=== PATIENT | female | born 1940 | race Caucasian/White ===

== ENCOUNTER 2022-02-28 22:13 | Emergency (ER) | payer MEDICARE, BC | END 2022-02-28 22:45 | disposition home or self-care (01) | LOC: LB.ED 22:13 | DX: S30.814A Abrasion of vagina and vulva, initial encounter (principal); E78.00 Pure hypercholesterolemia, unspecified; I10 Essential (primary) hypertension | CPT/HCPCS: 99281; 99282 ==

== ENCOUNTER 2025-05-07 13:40 | Emergency (ER) | payer MEDICARE, BC ==
[2025-05-07 13:59] LABS: BASOPHILS ABSOLUTE AUTO 0.05 K/uL (0.02-0.10); BASOPHILS PERCENT AUTO 0.7 % (0.0-0.5); EOSINOPHILS ABSOLUTE AUTO 0.29 K/uL (0.04-0.40); EOSINOPHILS PERCENT AUTO 3.9 % (1.0-5.0); LYMPHOCYTES ABSOLUTE AUTO 1.76 K/uL (1.50-4.00); LYMPHOCYTES PERCENT AUTO 23.9 % (20.0-40.0); MEAN PLATELET VOLUME 9.4 fL (6.0-10.0); MONOCYTES ABSOLUTE AUTO 0.90 K/uL (0.20-0.80); MONOCYTES PERCENT AUTO 12.2 % (3.0-10.0); NEUTROPHILS ABSOLUTE AUTO 4.37 K/uL (2.00-7.50); NEUTROPHILS PERCENT AUTO 59.3 % (45.0-70.0); PLATELET COUNT,PLT 198 K/uL (150-500); RED BLOOD CELL COUNT 3.40 M/uL (3.80-5.80); RED CELL DISTRIBUTION WIDTH 15.9 % (11.0-16.0); WHITE BLOOD CELL COUNT,WBC 7.4 K/uL (4.0-11.0)
[2025-05-07 14:30] LABS: A/G RATIO 1.0 (0.8-2.0); ALANINE AMINOTRANSFERASE,ALT 21.0 U/L (12-78); ASPARTATE AMNIOTRANSFERASE,AST 22.0 U/L (15-37); BILIRUBIN TOTAL 0.6 mg/dL (0.0-1.0); BLOOD UREA NITROGEN,BUN 27.0 mg/dL (8-26); CARBON DIOXIDE,CO2 27.8 mmol/L (21.0-32.0); CHLORIDE,CL 107.0 mmol/L (98-107); CREATININE 0.82 mg/dL (0.55-1.02); EST CRCL DRUG DOSING (CG) 39.98 mL/min; ESTIMATED GFR 69.0 mL/min (>60); GLUCOSE RANDOM 97.0 mg/dL (74-100); POTASSIUM,K 4.0 mmol/L (3.5-5.1); PROTEIN TOTAL,TP 6.6 g/dL (6.4-8.2); SODIUM,NA 143.0 mmol/L (136-145)
== END 2025-05-07 15:08 | disposition home or self-care (01) ==
LOC: LB.ED 13:40
DX: D64.9 Anemia, unspecified (principal); E86.0 Dehydration; I10 Essential (primary) hypertension; E78.00 Pure hypercholesterolemia, unspecified; Z79.899 Other long term (current) drug therapy; Z79.82 Long term (current) use of aspirin; Z79.02 Long term (current) use of antithrombotics/antiplatelets
CPT/HCPCS: 36415; 70450; 80053; 82947; 85025; 99285

== ENCOUNTER 2025-05-07 18:49 | Emergency (ER) | payer MEDICARE, BC ==
[2025-05-07 20:03] LABS: BASOPHILS ABSOLUTE AUTO 0.06 K/uL (0.02-0.10); BASOPHILS PERCENT AUTO 0.9 % (0.0-0.5); EOSINOPHILS ABSOLUTE AUTO 0.32 K/uL (0.04-0.40); EOSINOPHILS PERCENT AUTO 4.9 % (1.0-5.0); LYMPHOCYTES ABSOLUTE AUTO 1.58 K/uL (1.50-4.00); LYMPHOCYTES PERCENT AUTO 24.4 % (20.0-40.0); MEAN PLATELET VOLUME 9.8 fL (6.0-10.0); MONOCYTES ABSOLUTE AUTO 0.89 K/uL (0.20-0.80); MONOCYTES PERCENT AUTO 13.7 % (3.0-10.0); NEUTROPHILS ABSOLUTE AUTO 3.63 K/uL (2.00-7.50); NEUTROPHILS PERCENT AUTO 56.1 % (45.0-70.0); PLATELET COUNT,PLT 181 K/uL (150-500); RED BLOOD CELL COUNT 2.97 M/uL (3.80-5.80); RED CELL DISTRIBUTION WIDTH 15.7 % (11.0-16.0); WHITE BLOOD CELL COUNT,WBC 6.5 K/uL (4.0-11.0)
[2025-05-07 20:39] LABS: A/G RATIO 1.0 (0.8-2.0); ALANINE AMINOTRANSFERASE,ALT 17.0 U/L (12-78); ASPARTATE AMNIOTRANSFERASE,AST 21.0 U/L (15-37); BILIRUBIN TOTAL 0.5 mg/dL (0.0-1.0); BLOOD UREA NITROGEN,BUN 27.0 mg/dL (8-26); CARBON DIOXIDE,CO2 24.7 mmol/L (21.0-32.0); CHLORIDE,CL 108.0 mmol/L (98-107); CREATININE 0.78 mg/dL (0.55-1.02); EST CRCL DRUG DOSING (CG) 42.03 mL/min; ESTIMATED GFR 73.0 mL/min (>60); GLUCOSE RANDOM 130.0 mg/dL (74-100); POTASSIUM,K 4.3 mmol/L (3.5-5.1); PROTEIN TOTAL,TP 5.8 g/dL (6.4-8.2); SODIUM,NA 143.0 mmol/L (136-145)
== END 2025-05-07 21:58 ==
LOC: LB.ED 18:49
DX: R55 Syncope and collapse (principal); D64.9 Anemia, unspecified; K92.1 Melena; R79.89 Other specified abnormal findings of blood chemistry; I10 Essential (primary) hypertension; M19.90 Unspecified osteoarthritis, unspecified site; E78.00 Pure hypercholesterolemia, unspecified; Z79.82 Long term (current) use of aspirin; Z79.899 Other long term (current) drug therapy
CPT/HCPCS: 36415; 80053; 82274; 84484; 85025; 93005; 96365; 99285-25; A0425; A0427; A0428; J2470; J7030

== ENCOUNTER 2025-05-19 16:17 | Inpatient (IN) | payer MEDICARE, BC ==
[2025-05-19] MEDS ORDERED: Triamcinolone Acetonide 0.5% Crm 15 GM Tube TOP PRN (16:59)
[2025-05-19] MEDS ORDERED: NIACIN 100 MG PO SCH (17:00)
[2025-05-19] MEDS: Dorzolamide/Timolol 2%-0.5% Ophth Soln 10 ML Bottle EYEBOTH SCH (19:40)
[2025-05-19] MEDS: Calcium Carbonate/Vitamin D3 1500 MG-400 Units Tab PO SCH (19:41)
[2025-05-19] MEDS: Tuberculin, PPD 5 Units/0.1 ML 1 ML MDV IDERM SCH (20:57)
[2025-05-20] MEDS ORDERED: ASPIRIN 81 MG PO SCH (08:00)
[2025-05-20] MEDS ORDERED: Non-Formulary Medication 1 Each (Cholecalciferol (Vitamin D3) [Cholecalciferol] 1 GM Cryst PO SCH (08:00)
[2025-05-20 09:16] LABS: MEAN PLATELET VOLUME 9.1 fL (6.0-10.0); PLATELET COUNT,PLT 310 K/uL (150-500); RED BLOOD CELL COUNT 3.05 M/uL (3.80-5.80); RED CELL DISTRIBUTION WIDTH 16.9 % (11.0-16.0); WHITE BLOOD CELL COUNT,WBC 5.3 K/uL (4.0-11.0)
[2025-05-20 09:50] LABS: A/G RATIO 0.9 (0.8-2.0); ALANINE AMINOTRANSFERASE,ALT 27.0 U/L (12-78); ASPARTATE AMNIOTRANSFERASE,AST 33.0 U/L (15-37); BILIRUBIN TOTAL 0.6 mg/dL (0.0-1.0); BLOOD UREA NITROGEN,BUN 7.0 mg/dL (8-26); CARBON DIOXIDE,CO2 30.6 mmol/L (21.0-32.0); CHLORIDE,CL 109.0 mmol/L (98-107); CREATININE 0.64 mg/dL (0.55-1.02); EST CRCL DRUG DOSING (CG) 51.23 mL/min; ESTIMATED GFR 85.0 mL/min (>60); GLUCOSE RANDOM 145.0 mg/dL (74-100); POTASSIUM,K 3.4 mmol/L (3.5-5.1); PROTEIN TOTAL,TP 5.0 g/dL (6.4-8.2); SODIUM,NA 146.0 mmol/L (136-145)
[2025-05-20] MEDS: Magnesium Hydroxide 400 MG/5 ML Susp 30 ML Cup PO PRN (11:22)
[2025-05-20 11:52] LABS: EOSINOPHILS PERCENT MAN 1.0 % (1.0-5.0); LYMPHOCYTES PERCENT MAN 30.0 % (20.0-40.0); MONOCYTES PERCENT MAN 4.0 % (3.0-10.0); SEG NEUTROPHILS PERCENT MAN 65.0 % (45.0-70.0)
[2025-05-20 11:53] LABS: PLATELET COUNT ESTIMATE ADEQUATE
[2025-05-20] MEDS: CLARITHROMYCIN 500 MG PO SCH (14:25)
[2025-05-21 09:43] LABS: BLOOD UREA NITROGEN,BUN 6.0 mg/dL (8-26); CARBON DIOXIDE,CO2 32.0 mmol/L (21.0-32.0); CHLORIDE,CL 108.0 mmol/L (98-107); CREATININE 0.62 mg/dL (0.55-1.02); EST CRCL DRUG DOSING (CG) 52.88 mL/min; ESTIMATED GFR 86.0 mL/min (>60); GLUCOSE RANDOM 138.0 mg/dL (74-100); POTASSIUM,K 3.6 mmol/L (3.5-5.1); SODIUM,NA 145.0 mmol/L (136-145)
[2025-05-22] MEDS: Niacin 500 MG Cap.ER PO SCH (07:47)
[2025-05-22] MEDS ORDERED: Niacin 500 MG Cap.ER PO ONE (08:00)
[2025-05-24 08:58] LABS: BASOPHILS ABSOLUTE AUTO 0.07 K/uL (0.02-0.10); BASOPHILS PERCENT AUTO 1.6 % (0.0-0.5); EOSINOPHILS ABSOLUTE AUTO 0.26 K/uL (0.04-0.40); EOSINOPHILS PERCENT AUTO 5.9 % (1.0-5.0); LYMPHOCYTES ABSOLUTE AUTO 1.21 K/uL (1.50-4.00); LYMPHOCYTES PERCENT AUTO 27.6 % (20.0-40.0); MEAN PLATELET VOLUME 9.1 fL (6.0-10.0); MONOCYTES ABSOLUTE AUTO 0.56 K/uL (0.20-0.80); MONOCYTES PERCENT AUTO 12.8 % (3.0-10.0); NEUTROPHILS ABSOLUTE AUTO 2.29 K/uL (2.00-7.50); NEUTROPHILS PERCENT AUTO 52.1 % (45.0-70.0); PLATELET COUNT,PLT 342 K/uL (150-500); RED BLOOD CELL COUNT 3.32 M/uL (3.80-5.80); RED CELL DISTRIBUTION WIDTH 17.5 % (11.0-16.0); WHITE BLOOD CELL COUNT,WBC 4.4 K/uL (4.0-11.0)
[2025-06-02] MEDS ORDERED: Tuberculin, PPD 5 Units/0.1 ML 1 ML MDV IDERM SCH (20:00)
== END 2025-06-03 07:50 | disposition home or self-care (01) | DRG 948 ==
LOC: UNDOADMIN 16:17 → LB.MS 16:17
PROVIDERS: ADMIT Family Medicine; ATTEND Family Medicine
DX: R53.81 Other malaise (principal); R04.2 Hemoptysis; H54.7 Unspecified visual loss; E78.00 Pure hypercholesterolemia, unspecified; I87.2 Venous insufficiency (chronic) (peripheral); I10 Essential (primary) hypertension; M06.9 Rheumatoid arthritis, unspecified; Z66 Do not resuscitate; Z96.659 Presence of unspecified artificial knee joint; E78.5 Hyperlipidemia, unspecified; Z74.09 Other reduced mobility; R73.03 Prediabetes; I48.0 Paroxysmal atrial fibrillation; L90.0 Lichen sclerosus et atrophicus; D50.0 Iron deficiency anemia secondary to blood loss (chronic); K29.70 Gastritis, unspecified, without bleeding; M85.80 Other specified disorders of bone density and structure, unspecified site; E55.9 Vitamin D deficiency, unspecified; F10.90 Alcohol use, unspecified, uncomplicated; B96.81 Helicobacter pylori [H. pylori] as the cause of diseases classified elsewhere; E28.39 Other primary ovarian failure; H40.9 Unspecified glaucoma; Z91.010 Allergy to peanuts; Z91.014 Allergy to mammalian meats; Z79.82 Long term (current) use of aspirin; Z98.49 Cataract extraction status, unspecified eye; Z88.8 Allergy status to other drugs, medicaments and biological substances; Z91.018 Allergy to other foods; Z79.899 Other long term (current) drug therapy; I25.2 Old myocardial infarction; Z95.818 Presence of other cardiac implants and grafts; Z68.32 Body mass index [BMI] 32.0-32.9, adult; Z90.49 Acquired absence of other specified parts of digestive tract; Z83.3 Family history of diabetes mellitus; Z82.3 Family history of stroke; Z80.51 Family history of malignant neoplasm of kidney; Z82.49 Family history of ischemic heart disease and other diseases of the circulatory system; Z87.891 Personal history of nicotine dependence; Z86.73 Personal history of transient ischemic attack (TIA), and cerebral infarction without residual deficits
CPT/HCPCS: 36415; 80048; 80053; 82272; 83735; 85014; 85018; 85025; 86580; 96125-GN; 97110-GP; 97116-GP; 97161-GP; 97165-GO; 97530-GO; 97530-GP; 97535-GO; 99305; 99308; 99309; 99315; A9270-GY